=== PATIENT | male | born 1980 | race Caucasian/White ===

== ENCOUNTER 2022-12-28 14:13 | Emergency (ER) | payer BC, SELFPAY ==
[2022-12-28 14:20] VITALS: BP 138/87; PULSE 109; RESP 16; TEMP 36.8; O2SAT 94; BMI 40.8
--- NOTE | 2022-12-28 15:46 | USR_ITS ---
PROCEDURE INFORMATION: Exam: US Duplex Left Lower Extremity Veins, Limited Exam date and time: 12/28/2022 4:55 PM Age: 42 years old Clinical indication: Pain; Leg, lower; Left; Additional info: Redness/pain/swelling TECHNIQUE: Imaging protocol: Real-time duplex ultrasound of the left extremity with 2-D alejandro scale, color Doppler flow and spectral waveform analysis including responses to compression and other maneuvers (when performed) with image documentation. Limited exam focused on the left lower extremity veins. COMPARISON: No relevant prior studies available. FINDINGS: Left deep veins: Unremarkable. The common femoral, femoral, proximal profunda femoral and popliteal veins as well as the visualized deep veins of the lower leg are patent without thrombus. Normal Doppler waveforms. Normal compressibility and/or augmentation response. Left superficial veins: Unremarkable. Saphenofemoral junction is patent without thrombus. Soft tissues: Unremarkable. US/[place] [id number] IMPRESSION: No evidence of deep vein thrombosis.
--- NOTE | 2022-12-28 15:47 | W.ED.EXTPRO ---
Documented by User: [email or web address] Gomez 12/28/22 16:52 HPI - Extremity Problem General: Chief complaint: Extremity Injury, Lower Stated complaint: sent by uc/pain LT leg/LT calf warm and tender Time Seen by Provider: 12/28/22 15:18 Source: patient Mode of arrival: ambulatory Limitations: no limitations History of Present Illness: Patient is a 42-year-old male who presents to ED today with complaint of redness, warmth, pain to the left lower extremity that he began noticing this morning. He states upon arrival to the emergency department he is starting to feel nauseous and possibly febrile. Patient was afebrile in triage. He was reportedly seen at an [facility] clinic and referred to the ED for ultrasound evaluation for a DVT. He does state he recently has had a very long 12+ hour car ride. No previous history of DVT/PE. MD Complaint: extremity pain and extremity swelling Onset (ago): hour(s) Pain Consistency: constant Location: left and lower extremity Quality: burning and constant Radiation: none Relieving factors: nothing Exacerbating factors: nothing Associated symptoms: Reports fever(s) (subjective-states this just started upon arrival to ED) and other (nausea, subjective fever); Deny chest pain Context: recent travel (long car ride) Review of Systems Const: Reports: fever(s) (subjective-states this just started upon arrival to ED); Denies: chills, body aches, fatigue or malaise Card: Denies: chest pain Resp: Denies: dyspnea GI: Reports: nausea; Denies: abdominal pain, vomiting or change in bowel habits Musc: Reports: extremity pain and extremity swelling; Denies: neck pain, back pain, joint pain, joint swelling, joint redness, joint warmth or limited range of motion Skin/Breast: Reports: erythema (L LE) Neuro: Denies: numbness in extremities, weakness in extremities, sensory changes or difficulty walking [facility] ED PFSH: Social History Smoking and tobacco status: never smoked Physical Exam Const: COMMON NORMALS: no acute distress, patient oriented x3, no limitations and alert GENERAL APPEARANCE: cooperative NUTRITIONAL APPEARANCE: obese ORIENTATION/CONSCIOUSNESS: Yes awake, Yes oriented to person, Yes oriented to place and Yes oriented to time Resp: COMMON NORMALS: normal respiratory effort and clear to auscultation bilaterally AUSCULTATION: clear to auscultation bilaterally Cardio: COMMON NORMALS: regular rate and regular rhythm RATE: regular rate RHYTHM: regular rhythm Extremity: COMMON NORMALS: full ROM, capillary refill normal, no joint enlargement, no clubbing, cyanosis or edema and no pedal edema GENERAL: Yes normal exam except as noted EXTREMITY IMAGE (FRONT): 1. erythema/warmth; blanching; edema present-slightly moves into calf although calf is not notable swollen; negative Cecelia's; findings consistent with cellulitis Neuro: COMMON NORMALS: patient oriented x3, moves all extremities, no focal motor deficits and no sensory deficits noted SENSORIUM/ORIENTATION: Yes alert, Yes oriented to person, Yes oriented to place and Yes oriented to time Skin: RASHES: rashes noted (L ALTON; see above) Course Vital Signs: Vital signs: Vital Signs Temperature 98.2 F 12/28/22 14:20 Pulse Rate 109 H 12/28/22 14:20 Respiratory Rate 16 12/28/22 14:20 Blood Pressure 138/87 12/28/22 14:20 Pulse Oximetry 94 12/28/22 14:20 Oxygen Delivery Me thod Room Air 12/28/22 14:20 MDM - Extremity (Nontraumatic) Lab Data 12/28/22 16:28 12/28/22 16:28 Laboratory Results WBC 14.2 10^3/uL (4.0-10.0) H 12/28/22 16:28 RBC 4.79 10^6/uL (4.1-5.3) 12/28/22 16:28 Hgb 15.5 g/dL (11.7-16.6) 12/28/22 16:28 Hct 45.5 % (42.0-52.0) 12/28/22 16:28 MCV 95.0 fl (80-94) H 12/28/22 16:28 MCH 32.4 pg (28.0-34.0) 12/28/22 16:28 MCHC 34.1 g/dL (30.0-36.0) 12/28/22 16:28 RDW 12.8 % (12.1-15.1) 12/28/22 16:28 Plt Count 177 10^3/cmm (130-400) 12/28/22 16:28 MPV 9.2 fL (7.4-10.4) 12/28/22 16:28 Neut % (Auto) 77.2 % 12/28/22 16:28 Lymph % (Auto) 14.3 % 12/28/22 16:28 Martin % (Auto) 6.6 % 12/28/22 16:28 Eos % (Auto) 1.0 % 12/28/22 16:28 Baso % (Auto) 0.5 % 12/28/22 16:28 Neut # (Auto) 10.93 10^3/uL (1.8-7.7) H 12/28/22 16: Lymph # (Auto) 2.0 10^3/uL (0.8-4.8) 12/28/22 16:28 Martin # (Auto) 0.9 10^3/uL (0.2-0.9) 12/28/22 16: Eos # (Auto) 0.1 10^3/uL (0.0-0.8) 12/28/22 16: Baso # (Auto) 0.1 10^3/uL (0.0-0.1) 12/28/22 16: Nucleated RBC % (auto) 0 % 12/28/22 16: Nucleated RBCs # 0.0 /100WBC 12/28/22 16:28 Sodium 134 mmol/L (136-145) L 12/28/22 16:28 Potassium 3.9 mmol/L (3.5-5.1) 12/28/22 16:28 Chloride 100 mmol/L (98-107) 12/28/22 16:28 Carbon Dioxide 26 mmol/L (22-29) 12/28/22 16:28 Anion Gap 11.9 (5-19) 12/28/22 16:28 BUN 10 mg/dL (6-20) 12/28/22 16:28 Creatinine 0.8 mg/dL (0.7-1.2) 12/28/22 16:28 GFR Calculation 106.0 mL/min (90-130) 12/28/22 16:28 Glucose 96 mg/dL (65-115) 12/28/22 16:28 Calculated Osmolality 277 mOsm/kg (285-295) L 12/28/22 16:28 Calcium 8.9 mg/dL (8.5-10.5) 12/28/22 16:28 Total Bilirubin 0.9 mg/dL (0.15-1.2) 12/28/22 16:28 AST 32 U/L (0-40) 12/28/22 16:28 ALT 53 U/L (0-41) H 12/28/22 16:28 Alkaline Phosphatase 54 U/L (40-130) 12/28/22 16:28 C-Reactive Protein 3.0 mg/L (0.0-4.9) 12/28/22 16:28 Total Protein 6.5 g/dL (6.6-8.7) L 12/28/22 16:28 Albumin 3.8 g/dL (3.5-5.2) 12/28/22 16:28 Globulin 2.7 g/dL (1.3-4.6) 12/28/22 16:28 Discharge Plan Discharge Patient Disposition: Home Clinical Impression: Cellulitis of left lower leg Condition: Stable Prescriptions: No Action lisinopril 5 mg tablet 5 mg PO BID sulfamethoxazole-trimethoprim [Bactrim DS] 800-160 mg tablet 1 tab PO BID 10 Days Qty: 20 0RF Discharge Orders: Discharge ED (Routine); Ordered 12/28/22 Ordered By: Eliezer Sumner Referrals: Ramon Smith MD [Primary Care Provider] - Patient Instructions: Cellulitis (ED) Activity Restrictions/Additional Instructions: Take antibiotics as prescribed. Elevate leg is much as possible. Continue with routine medications as directed. Follow-up with primary care in 3 to 5 days for recheck. Return to ER for worsening symptoms such as increasing redness and swelling, fever greater than 100.4, or uncontrolled pain. Sign Out Sign Out Data: Patient Sign Out occurred on 12/28/22 at 17:03. Patient's care was discussed, and care was transferred from to Eliezer Sumner. Coding Level of Care Code ED Sash Clamp Operator for Chg Fwd Documented by User: CONSUELO Perry 12/28/22 17:19 HPI - Extremity Problem General: Chief complaint: Extremity Injury, Lower Stated complaint: sent by uc/pain LT leg/LT calf warm and tender Time Seen by Provider: 12/28/22 15:18 [facility] ED PFSH: Social History Smoking and tobacco status: never smoked Physical Exam Extremity: EXTREMITY IMAGE (FRONT): 1. erythema/warmth; blanching; edema present-slightly moves into calf although calf is not notable swollen; negative Cecelia's; findings consistent with cellulitis Course Vital Signs: Vital signs: Vital Signs Temperature 98.2 F 12/28/22 14:20 Pulse Rate 109 H 12/28/22 14:20 Respiratory Rate 16 12/28/22 14:20 Blood Pressure 138/87 12/28/22 14:20 Pulse Oximetry 94 12/28/22 14:20 Oxygen Delivery Me thod Room Air 12/28/22 14:20 MDM - Extremity (Nontraumatic) Medical Decision Making Patient was referred to the emergency department for concerns of swelling and redness to the left lower extremity. On exam patient has some erythema to the posterior left lower leg. Distal pulses are intact. Patient has multiple areas of scarring to bilateral lower legs. Patient reports he just gets lesions that he picks at on his lower legs at times. Patient denies diabetes mellitus. Differential diagnosis includes but not limited to cellulitis, DVT, superficial thrombophlebitis, varicose veins. Laboratory values were unremarkable. CRP was 3. Ultrasound of the extremity showed no signs of DVT. Patient will continue antibiotics as prescribed from urgent care with recommendations for follow-up or return to the ER as needed. Lab Data 12/28/22 16:28 12/28/22 16:28 Laboratory Results WBC 14.2 10^3/uL (4.0-10.0) H 12/28/22 16:28 RBC 4.79 10^6/uL (4.1-5.3) 12/28/22 16:28 Hgb 15.5 g/dL (11.7-16.6) 12/28/22 16:28 Hct 45.5 % (42.0-52.0) 12/28/22 16: MCV 95.0 fl (80-94) H 12/28/22 16: MCH 32.4 pg (28.0-34.0) 12/28/22 16: MCHC 34.1 g/dL (30.0-36.0) 12/28/22 16: RDW 12.8 % (12.1-15.1) 12/28/22 16:28 Plt Count 177 10^3/cmm (130-400) 12/28/22 16:28 MPV 9.2 fL (7.4-10.4) 12/28/22 16:28 Neut % (Auto) 77.2 % 12/28/22 16: Lymph % (Auto) 14.3 % 12/28/22 16: Martin % (Auto) 6.6 % 12/28/22 16: Eos % (Auto) 1.0 % 12/28/22 16: Baso % (Auto) 0.5 % 12/28/22 16: Neut # (Auto) 10.93 10^3/uL (1.8-7.7) H 12/28/22 16:28 Lymph # (Auto) 2.0 10^3/uL (0.8-4.8) 12/28/22 16:28 Martin # (Auto) 0.9 10^3/uL (0.2-0.9) 12/28/22 16: Eos # (Auto) 0.1 10^3/uL (0.0-0.8) 12/28/22 16: Baso # (Auto) 0.1 10^3/uL (0.0-0.1) 12/28/22 16: Nucleated RBC % (auto) 0 % 12/28/22 16: Nucleated RBCs # 0.0 /100WBC 12/28/22 16: Sodium 134 mmol/L (136-145) L 12/28/22 16:28 Potassium 3.9 mmol/L (3.5-5.1) 12/28/22 16: Chloride 100 mmol/L (98-107) 12/28/22 16: Carbon Dioxide 26 mmol/L (22-29) 12/28/22 16:28 Anion Gap 11.9 (5-19) 12/28/22 16:28 BUN 10 mg/dL (6-20) 12/28/22 16:28 Creatinine 0.8 mg/dL (0.7-1.2) 12/28/22 16:28 GFR Calculation 106.0 mL/min (90-130) 12/28/22 16:28 Glucose 96 mg/dL (65-115) 12/28/22 16:28 Calculated Osmolality 277 mOsm/kg (285-295) L 12/28/22 16:28 Calcium 8.9 mg/dL (8.5-10.5) 12/28/22 16:28 Total Bilirubin 0.9 mg/dL (0.15-1.2) 12/28/22 16:28 AST 32 U/L (0-40) 12/28/22 16:28 ALT 53 U/L (0-41) H 12/28/22 16:28 Alkaline Phosphatase 54 U/L (40-130) 12/28/22 16:28 C-Reactive Protein 3.0 mg/L (0.0-4.9) 12/28/22 16:28 Total Protein 6.5 g/dL (6.6-8.7) L 12/28/22 16:28 Albumin 3.8 g/dL (3.5-5.2) 12/28/22 16:28 Globulin 2.7 g/dL (1.3-4.6) 12/28/22 16:28 Discharge Plan Discharge Patient Disposition: Home Clinical Impression: Cellulitis of left lower leg Condition: Stable Prescriptions: No Action lisinopril 5 mg tablet 5 mg PO BID sulfamethoxazole-trimethoprim [Bactrim DS] 800-160 mg tablet 1 tab PO BID 10 Days Qty: 20 0RF Discharge Orders: Discharge ED (Routine); Ordered 12/28/22 Ordered By: Eliezer Sumner Referrals: Ramon Smith MD [Primary Care Provider] - Patient Instructions: Cellulitis (ED) Activity Restrictions/Additional Instructions: Take antibiotics as prescribed. Elevate leg is much as possible. Continue with routine medications as directed. Follow-up with primary care in 3 to 5 days for recheck. Return to ER for worsening symptoms such as increasing redness and swelling, fever greater than 100.4, or uncontrolled pain. Sign Out Sign Out Data: Patient Sign Out occurred on 12/28/22 at 17:03. Patient's care was discussed, and care was transferred from to Eliezer Sumner. Coding Level of Care Code ED Sash Clamp Operator for Radha Galarza
[2022-12-28 16:37] LABS: Basophils # 0.1 10^3/uL (0.0-0.1); Basophils % 0.5 %; Eosinophils # 0.1 10^3/uL (0.0-0.8); Hematocrit 45.5 % (42.0-52.0); Hemoglobin 15.5 g/dL (11.7-16.6); Lymphocytes % 14.3 %; Mean Corpuscular HGB Conc 34.1 g/dL (30.0-36.0); Mean Corpuscular Hemoglobin 32.4 pg (28.0-34.0); Mean Platelet Volume 9.2 fL (7.4-10.4); Monocytes # 0.9 10^3/uL (0.2-0.9); Monocytes % 6.6 %; Neutrophils # 10.93 10^3/uL (1.8-7.7); Neutrophils % 77.2 %; Nucleated Red Blood Cells % 0 %; Platelet Count 177 10^3/cmm (130-400); Red Blood Count 4.79 10^6/uL (4.1-5.3); Red Cell Distribution Width 12.8 % (12.1-15.1); White Blood Count 14.2 10^3/uL (4.0-10.0)
[2022-12-28 17:02] LABS: Alanine Aminotransferase 53 U/L (0-41); Albumin Level 3.8 g/dL (3.5-5.2); Alkaline Phosphatase 54 U/L (40-130); Anion Gap 11.9 (5-19); Aspartate Amino Transferase 32 U/L (0-40); Blood Urea Nitrogen 10 mg/dL (6-20); Calcium 8.9 mg/dL (8.5-10.5); Carbon Dioxide 26 mmol/L (22-29); Chloride 100 mmol/L (98-107); Globulin 2.7 g/dL (1.3-4.6); Glucose 96 mg/dL (65-115); Osmolality Calculated 277 mOsm/kg (285-295); Potassium 3.9 mmol/L (3.5-5.1); Sodium 134 mmol/L (136-145); Total Bilirubin 0.9 mg/dL (0.15-1.2); Total Protein 6.5 g/dL (6.6-8.7)
[2022-12-28 17:44] VITALS: BP 138/87; PULSE 109; RESP 16; TEMP 36.8; O2SAT 94
== END 2022-12-28 17:47 | disposition home or self-care (01) ==
PROVIDERS: Physician Assistant; Emergency Provider Nurse Practitioner Family; PCP Family Medicine
DX: L03.116 Cellulitis of left lower limb (principal)
CPT/HCPCS: 80053; 85025; 86140; 93971; 99284

== ENCOUNTER 2024-12-21 12:46 | Emergency (ER) | payer BC, SELFPAY ==
--- OUTSIDE RECORDS SUMMARY | 2024-12-21 12:50 | XMS_ITS | Patient Health Record ---
Author Organization [facility] Address [address] [place] [address] Care Team Providers Care Rn Dialysis Name Role Phone Jessi Live Primary Care Provider [phone] Kurt aRbago [phone] Allergies No Known Allergies Reason For Referral No Information Medications Medication SIG (Take, Route, Frequency, Duration) Notes Start Date End Date Status Lisinopril 10 MG 1/2 tablet in the AM 1 tablet at night Orally daily for 30 days Dose increase 09/30/2021 Active Social History Tobacco Use: Social History Observation Description Date Details (start date - stop date) Never Smoker NA - NA xTobacco Use/Smoking Question Answer Notes Are you a nonsmoker Alcohol Screen (Audit-C) Question Answer Notes Did you have a drink contain ing alcohol in the past year? Yes How often did you have a dri nk containing alcohol in the past year? Monthly or less (1 point) How many drinks did you have on a typical day when you were drinking in the past year? 1 or 2 drinks (0 point) How often did you have 6 or more drinks on one occasion in the past year? Less than monthly (1 point) Points 2 Interpretation Negative Tobacco use other than smoking: Question Answer Notes Are you an other tobacco user? No PHQ-9 Question Answer Notes Little interest or pleasure in doing things Not at all Feeling down, depressed, or hopeless Not at all Trouble falling or staying asleep, or sleeping t oo much Not at all Feeling tired or having little energy Not at all Poor appetite or overeating Not at all Feeling bad about yourself, or that you are a failure, or have let yourself or your family down Not at all Trouble concentrating on thi ngs, such as reading the newspaper or watching television Not at all Moving or speaking so slowly that other people could have noticed. Or the opposite ? being so fidgety or restless that you have been moving around a lot more than usual Not at all Thoughts that you would be b nhung off , or of hurting yourself in some way Not at all Total Score 0 Problems Problem Type SNOMED Code ICD Code Onset Dates Problem Status W/U Status Risk Notes Problem 49381337 Essential hypertension (I10) Active confirmed Problem 134334319 Seasonal allergies (J30.2) Active confirmed Problem Obstructive sleep apnea syndrome (18033735) Obstructive sleep apnea (adult) (pediatric) (327.23) 12/23/19 18 Active confirmed [id number] 911- Problem Chronic diastolic heart failure (158933891) Diastolic heart failure, chronic (428.32) 08/20/19 17 Active confirmed [id number] 911- Problem Erectile dysfunction (854314042) Erectile dysfunction (302.72) 08/20/19 17 Active confirmed [id number] 911- Problem Essential hypertension (02293243) Essential hypertension (401.1) 10/07/19 18 Active confirmed [id number] 911- Problem Obsessive-compuls page disorder (519867259) OCD (300.3) 11/18/19 18 Active confirmed [id number] 911- Problem Cardiomegaly (4087944) Cardiomegaly (429.3) 03/12/20 16 Problem resolved confirmed [id number] 911- Problem Headache (47236946) Headache (307.81) 03/12/20 16 Problem resolved confirmed [id number] 911- Problem Screening for cardiovascular system disease (procedure) (310793139) Screening for cardiovascular conditions (V81.2) 03/12/20 16 Problem resolved confirmed [id number] 911- Problem Disorder of hematopoietic system (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) Other abnormal findings on blood examination (790.99) 10/06/19 17 Problem resolved confirmed [id number] 911- Problem Disorder of lipid metabolism (633540098) Low HDL level (272.9) 08/20/19 17 Problem resolved confirmed [id number] 911- Plan Of Treatment No Information Insurance Providers Payer Name Payer Address Payer Phone Subscriber Number Group Number Insured Name Patient Relationship to Insured Coverage Start Date Coverage End Date [facility] [employer] [address] [place] [address] [phone] [id number] Nikhil Oliver Self - patient is the insured Medical (General) History Medical History History ICD Code Obstructive sleep apnea Essential hypertension; 12/01 manual cuff 138/92 and home cuff was 139/100. OCD Low HDL level Diastolic heart failure Erectile dysfunction Cardiomegaly Surgical History Surgery Date(Month/Year) tonsillectomy age 5
--- NOTE | 2024-12-21 12:53 | ECG_ITS ---
[facility] Test Date: 2024-12-21 Pat Name: Nikhil Oliver Department: Room: Gender: Male Chemists: : 1980 Requested By: William Romeo Order Number: [id number] Dalia MD: Salina Gutierrez M.D. Measurements Intervals [place] Rate: 98 P: 29 MT: 198 QRS: -21 QRSD: 102 T: 28 QT: 330 QTc: 423 Interpretive Statements SINUS RHYTHM WITH OCCASIONAL VENTRICULAR PREMATURE COMPLEXES BORDERLINE LEFT AXIS DEVIATION [QRS AXIS < -20] INCOMPLETE RIGHT BUNDLE BRANCH BLOCK [90+ ms QRS DURATION, TERMINAL R IN V1/V2, 40+ ms S IN I/aVL/V4/V5/V6] No previous ECG available for comparison Electronically Signed On 12-22-2024 15:21:44 CDT by Salina Gutierrez M.D. [email or web address]
[2024-12-21 12:55] VITALS: BP 137/89; PULSE 100; RESP 16; TEMP 36.6; O2SAT 98; BMI 42.5
[2024-12-21 14:30] VITALS: BP 115/93; PULSE 87; O2SAT 97
--- NOTE | 2024-12-21 14:38 | XR_ITS ---
WS: [id number] Exam: XR chest 1V portable [id number] Date/Time of Exam: 12/21/2024 2:38 PM Reason For Exam: Chest pain No priors. Lungs are fully expanded and clear. Normal cardiomediastinal silhouette. No pleural effusions. Bony structures are intact. XR/XR chest 1V portable [id number] IMPRESSION: 1. No acute cardiopulmonary finding.
[2024-12-21 14:58] LABS: Hematocrit 49.4 % (37-53); Hemoglobin 17.40 g/dL (11.27-16.99); Mean Corpuscular HGB Conc 35.2 g/dL (30-55); Mean Corpuscular Hemoglobin 32.5 pg (27-33); Mean Corpuscular Volume 92.2 fl (82-101); Nucleated Red Blood Cells % 0 %; Platelet Count 235 10^3/cmm (157-399); Red Blood Count 5.36 10^6/uL (3.85-5.65); White Blood Count 9.26 10^3/uL (3.29-11.43)
[2024-12-21 15:00] VITALS: BP 145/100; PULSE 80; O2SAT 95
--- NOTE | 2024-12-21 15:01 | W.ED.CHESTPA ---
HPI - Chest Pain General: Chief Complaint: Chest Pain Stated Complaint: chest pains at times Time Seen by Provider: 12/21/24 14:33 History of Present Illness: 44-year-old man with history of obesity and hypertension and a strong cardiac history who presents the emergency room with several brief episodes of chest pain today. He said it lasted only a couple of seconds. He says as soon as it happened and he started to notice he is having pain it would go away. 7 the left chest and some of the right chest. He had an episode while out in the waiting room. Multiple family members have of heart attack so he is quite worried about that. Related Data Home Medications ?Medication ?Instructions ?Recorded ?Confirmed lisinopril 5 mg tablet 5 mg PO BID 12/11/21 12/28/22 Previous Rx's ?Medication ?Instructions ?Recorded sulfamethoxazole 800 1 tab PO BID 10 days #20 tabs 12/28/22 mg-trimethoprim 160 mg tablet (Bactrim DS) Allergies Allergy/AdvReac Type Severity Reaction Status Date / Time No Known Allergies Allergy Verified 12/28/22 14:20 [facility] ED PFSH: Social History Smoking and tobacco/nicotine status: never used tobacco/nicotine Physical Exam Narrative: EXAM NARRATIVE: General: Alert, no acute distress. Skin: Warm, dry. Head: Normocephalic, atraumatic. Neck: Supple, trachea midline. Eye: Extraocular movements are intact. Ears, nose, mouth and throat: mucosa moist. Cardiovascular: Regular, Normal peripheral perfusion. Respiratory: Lungs are clear to auscultation, respirations are non-labored, breath sounds are equal, Symmetrical chest wall expansion. Gastrointestinal: Soft, Nontender, Non distended Musculoskeletal: Normal ROM, no deformity. Neurological: Alert and oriented, No focal neurological deficit observed. Psychiatric: Cooperative, appropriate mood & affect. Course Vital Signs: Vital signs: Vital Signs Temperature 98 F 12/21/24 12:55 Pulse Rate 92 12/21/24 15:30 Respiratory Rate 16 12/21/24 12:55 Blood Pressure 131/97 12/21/24 15:30 Pulse Oximetry 96 12/21/24 15:30 Oxygen Delivery Me thod Room Air 12/21/24 15:30 MDM - Chest Pain Medical Decision Making Differential diagnosis for patient with chest pain includes but is not limited to and based on the above HPI, review of systems and physical exam: Pneumonia. unstable angina. angina. Acute coronary syndrome / DC. Pulmonary embolism. Costochondritis / musculoskeletal. Pleurisy. Pericarditis. Esophageal spasm. Pancreatis. Cholecystitis. Orders placed to evaluate differential diagnosis based on the above differential, HPI and physical exam EKG: Time 1253. Rate 96. Normal sinus rhythm, No ST-T changes, PVCs, incomplete right bundle branch block, This was reviewed and interpreted by myself the ER physician at 1258 Chest x-ray: No acute process. No infiltrate. No pneumothorax. This was reviewed and interpreted by myself the emergency room physician. I also reviewed the radiology report. Lab Review: Laboratory results were reviewed and interpreted by myself the emergency room physician. No leukocytosis. No anemia. No renal failure. Serial troponins are negative. Repeat EKG: Time 1620. Rate 92. Normal sinus rhythm, No ST-T changes, PVCs, incomplete right bundle branch block, This was reviewed and interpreted by myself the ER physician at 1625. No changes from EKG done previously today in the emergency room. I reviewed the patient's medical record. Reexamination: Patient remained stable. No increased work of breathing. No altered mental status. No focal motor deficits. Patient has remained chest pain-free w Assessment and plan: Noncardiac chest pain - Discharged home - Discussed plan with patient. Answered any questions. - Evaluation and treatment of this problem were appropriate in the emergency setting. Lab Data 12/21/24 14:45 12/21/24 14:45 Radiology Impressions Chest X-Ray 12/21/24 14:38 IMPRESSION: 1. No acute cardiopulmonary finding. Laboratory Results WBC 9.26 10^3/uL (3.29-11.43) 12/21/24 14:45 RBC 5.36 10^6/uL (3.85-5.65) 12/21/24 14:45 Hgb 17.40 g/dL (11.27-16.99) H 12/21/24 14:45 Hct 49.4 % (37-53) 12/21/24 14:45 MCV 92.2 fl (82-101) 12/21/24 14:45 MCH 32.5 pg (27-33) 12/21/24 14:45 MCHC 35.2 g/dL (30-55) 12/21/24 14:45 RDW 12.8 % (12.1-15.1) 12/21/24 14:45 Plt Count 235 10^3/cmm (157-399) 12/21/24 14:45 MPV 9.3 fL (7.4-10.4) 12/21/24 14:45 Neut % (Auto) 60.7 % 12/21/24 14:45 Lymph % (Auto) 28.1 % 12/21/24 14:45 Mora % (Auto) 7.3 % 12/21/24 14:45 Eos % (Auto) 2.7 % 12/21/24 14:45 Baso % (Auto) 0.9 % 12/21/24 14:45 Neut # (Auto) 5.62 10^3/uL (1.8-7.7) 12/21/24 14:45 Lymph # (Auto) 2.6 10^3/uL (0.8-4.8) 12/21/24 14:45 Mora # (Auto) 0.7 10^3/uL (0.2-0.9) 12/21/24 14:45 Eos # (Auto) 0.3 10^3/uL (0.0-0.8) 12/21/24 14:45 Baso # (Auto) 0.1 10^3/uL (0.0-0.1) 12/21/24 14:45 Nucleated RBC % (auto) 0 % 12/21/24 14:45 Nucleated RBCs # 0.0 /100WBC 12/21/24 14:45 Sodium 139 mmol/L (136-145) 12/21/24 14:45 Potassium 3.6 mmol/L (3.5-5.1) 12/21/24 14:45 Chloride 99 mmol/L (98-107) 12/21/24 14:45 Carbon Dioxide 27 mmol/L (22-29) 12/21/24 14:45 Anion Gap 16.6 (5-19) 12/21/24 14:45 BUN 12 mg/dL (6-20) 12/21/24 14:45 Creatinine 0.7 mg/dL (0.7-1.2) 12/21/24 14:45 GFR Calculation 122.5 mL/min (90-130) 12/21/24 14:45 Glucose 96 mg/dL (65-115) 12/21/24 14:45 Calculated Osmolality 288 mOsm/kg (285-295) 12/21/24 14:45 Calcium 9.7 mg/dL (8.5-10.5) 12/21/24 14:45 Total Bilirubin 0.9 mg/dL (0.15-1.2) 12/21/24 14:45 AST 43 U/L (0-40) H 12/21/24 14:45 ALT 54 U/L (0-41) H 12/21/24 14:45 Alkaline Phosphatase 59 U/L (40-130) 12/21/24 14:45 Troponin T Baseline 13 ng/L (0-15) 12/21/24 14:45 Troponin T 120 Minute 11.13 ng/L (0-15) 12/21/24 15:50 Delta Troponin T -1.87 ABS# (0-10) L 12/21/24 15:50 Total Protein 7.2 g/dL (6.6-8.7) 12/21/24 14:45 Albumin 4.4 g/dL (3.5-5.2) 12/21/24 14:45 Globulin 2.8 g/dL (1.3-4.6) 12/21/24 14:45 All radiology interpretation(s) finalized by discharge Discharge Plan Discharge Patient Disposition: Home Clinical Impression: Non-cardiac chest pain Condition: Stable Prescriptions: No Action lisinopril 5 mg tablet 5 mg PO BID sulfamethoxazole-trimethoprim [Bactrim DS] 800-160 mg tablet 1 tab PO BID 10 Days Qty: 20 0RF Discharge Orders: Discharge ED (Routine); Ordered 12/21/24 Ordered By: Deidra Fuentes Referrals: Ramon Smith MD [Primary Care Provider, Family Practice] Discharge Diet: Usual diet Discharge Activity: Increase activity as tolerated Patient Instructions: Noncardiac Chest Pain (ED), Opioid Safety, Pain Management, Patient Portal & Yajaira Instructions Activity Restrictions/Additional Instructions: Thank you for choosing [facility] for your healthcare needs today. You have been screened and evaluated and felt safe for discharge. Health conditions do change or evolve sometimes and as such it is important that you follow up with your Primary Doctor to be re checked, 3-5 days is a general good time frame for follow up. You are always welcome to return to the ED for re assessment if your symptoms are worsening or you have new concerns Print Language: Welsh Coding Level of Care Code ED Turn Down Worker for Radha Galarza
[2024-12-21 15:15] LABS: Troponin(5th) Baseline 13 ng/L (0-15)
[2024-12-21 15:17] LABS: Alanine Aminotransferase 54 U/L (0-41); Albumin Level 4.4 g/dL (3.5-5.2); Alkaline Phosphatase 59 U/L (40-130); Anion Gap 16.6 (5-19); Aspartate Amino Transferase 43 U/L (0-40); Blood Urea Nitrogen 12 mg/dL (6-20); Calcium 9.7 mg/dL (8.5-10.5); Carbon Dioxide 27 mmol/L (22-29); Chloride 99 mmol/L (98-107); Creatinine Clr Calc Pharmacy 214.0731; Globulin 2.8 g/dL (1.3-4.6); Glucose 96 mg/dL (65-115); Osmolality Calculated 288 mOsm/kg (285-295); Potassium 3.6 mmol/L (3.5-5.1); Sodium 139 mmol/L (136-145); Total Protein 7.2 g/dL (6.6-8.7)
[2024-12-21 15:30] VITALS: BP 131/97; PULSE 92; O2SAT 96
--- NOTE | 2024-12-21 16:20 | ECG_ITS ---
[facility]21 Pat Name: Nikhil Oliver Department: Room: Gender: Male Substance Abuse Technician: : 1980 Requested By: Deidra Romeo Order Number: [id number] Dalia MD: Salina Gutierrez M.D. Measurements Intervals Rescue Rate: 92 P: 29 PA: 195 QRS: -17 QRSD: 102 T: 14 QT: 338 QTc: 418 Interpretive Statements SINUS RHYTHM WITH OCCASIONAL VENTRICULAR PREMATURE COMPLEXES INCOMPLETE RIGHT BUNDLE BRANCH BLOCK [90+ ms QRS DURATION, TERMINAL R IN V1/V2, 40+ ms S IN I/aVL/V4/V5/V6] Compared to ECG 12/21/2024 12:53:58 No significant changes Electronically Signed On 12-22-2024 15:33:00 CDT by Salina Gutierrez M.D. [email or web address]
[2024-12-21 16:24] LABS: Troponin 5 2HR 11.13 ng/L (0-15)
[2024-12-21 16:29] LABS: Troponin 5 2HR Delta -1.87 ABS# (0-10)
[2024-12-21 16:56] VITALS: BP 114/74; PULSE 85; O2SAT 94
== END 2024-12-21 16:59 | disposition home or self-care (01) ==
PROVIDERS: Emergency Provider Emergency Medicine; PCP Family Medicine
DX: R07.89 Other chest pain (principal); I10 Essential (primary) hypertension
CPT/HCPCS: 36415; 71045; 80053; 84484; 85025; 93005; 99285

== ENCOUNTER 2025-02-16 06:31 | Outpatient (CLI) | payer BC, SELFPAY ==
--- NOTE | 2025-02-16 06:30 | USCV_ITS ---
Nikhil Oliver Age: 45 Gender: M : 1980 Exam Date: 02/16/2025 06:42 Ordering Phys: Shamir Pang MD ([email or web address]) Technologist: GLORIA Exam Location: [facility] [place] Indication: CP BP: 120 / 90 HR: 81 Rhythm: Sinus Technical Quality: Adequate MEASUREMENTS (Male / Female) Normal Values 2D ECHO LV Diastolic Diameter PLAX 5.5 cm 4.2 - 5.9 / 3.9 - 5.3 cm IVS Diastolic Thickness 1.1 cm 0.6 - 1.0 / 0.6 - 0.9 cm IVS Systolic Thickness 1.4 cm LVPW Systolic Thickness 2.4 cm LVOT Diameter 2.0 cm LV Ejection Fraction 2D Teich 54.9 % LV Ejection Fraction MOD 4C 58.3 % LV Ejection Fraction MOD 2C 55.3 % LV Ejection Fraction 2C AL 56.5 % LA Diameter 3.5 cm RA Systolic Volume 4C AL 72.3 ml RA Systolic Volume 4C MOD 69.8 ml LA Sys Volume AL 46.8 cm cubed LA Sys Volume Index AL 15.8 cm cubed/m squared Aorta at Sinotubular Diameter 3.5 cm M-MODE LA Ao Ratio MM 1.2 AV Cusp Separation MM 1.8 cm DOPPLER AV Peak Velocity 126.0 cm/s LVOT Peak Velocity 89.0 cm/s AV Area Cont Eq vti 1.9 cm squared AV Area Cont Eq pk 2.3 cm squared MV Peak Velocity 89.0 cm/s MV Area PHT 5.0 cm squared Mitral E to A Ratio 0.7 TR Peak Velocity 91.0 cm/s TR Peak Gradient 3.3 mmHg TV Peak E Velocity 82.0 cm/s PV Peak Velocity 107.0 cm/s FINDINGS Left Ventricle Normal left ventricular size, systolic function and wall thickness, with no regional wall motion abnormalities. Left ventricular ejection fraction is 58%. Right Ventricle Mildly increased right ventricular size. Normal right ventricular systolic function. RVSP could not be calculated due to incomplete tricuspid regurgitation velocity profile. Right Atrium Normal right atrial size. Left Atrium Normal left atrial size. Mitral Valve No mitral valve stenosis. No mitral valve regurgitation. Aortic Valve No aortic valve stenosis. Trace aortic valve regurgitation. Tricuspid Valve No tricuspid valve regurgitation. No tricuspid valve stenosis. Pulmonic Valve No pulmonary valve stenosis. No pulmonary valve regurgitation. Pericardium No pericardial effusion. Aorta Normal size aortic root and proximal ascending aorta. IVC Inferior vena cava not visualized. CONCLUSIONS 1. Normal left ventricular size and systolic funcion, EF 58%. 2. Mildly dilated right ventricle. Normal right ventricular function. 3. No significant valvular abnormalities. Shamir Pang MD, FACC (Electronically Signed) Final Date: 20 February 2025 12:49 S
== END 2025-02-16 06:32 | disposition home or self-care (01) ==
LOC: RAD 06:32
PROVIDERS: PCP Family Medicine; Visit Provider Internal Medicine Cardiovascular Disease
DX: R07.9 Chest pain, unspecified (principal); I51.7 Cardiomegaly
CPT/HCPCS: 93306

== ENCOUNTER 2025-03-14 11:49 | Outpatient (CLI) | payer BC, SELFPAY ==
--- NOTE | 2025-03-14 | ECG_ITS ---
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 Interpretive Statements Lung unchanged pre/post procedure; Intraprocedure shortess of breath; Symptoms resoled by discharge PROCEDURE: At the baseline, the patient's blood pressure was with a heart rate of. The baseline electrocardiogram showed normal sinus rhythm with normal ST-Ts. Nonspecific IVCD. Frequent PVCs were noted. The patient exercised for 6 minutes and 30 on a standard [place] protocol. Patient attained a maximum heart rate of 149 beats per minute(85% of the maximum predicted heart rate) with a blood pressure at the peak exercise of 162/69 mm Hg. The EKG at the peak exercise revealed no significant change. Patient did not have any chest pain or any significant cardiac arrhythmias with the exercise During the recovery phase, there were no new changes. Blood pressure at the end of the recovery phase was 150/96 mm Hg with a heart rate of 113 per minute. CONCLUSION: 1. Normal EKG response to treadmill exercise 2. No exercise-induced chest pain or cardiac arrhythmia 3. Fair exercise tolerance, attained a maximum of 10.2 METs Electronically Signed On 03-18-2025 21:17:27 CDT by Salina Gutierrez M.D. [email or web address]
[2025-03-14 11:55] VITALS: BMI 43.3
--- NOTE | 2025-03-14 12:11 | USCV_ITS ---
Stress Echo Nikhil Oliver Age: 45 Gender: M : 1980 Exam Date: 03/14/2025 12:25 Ordering Phys: Shamir Pang MD ([email or web address]) Technologist: [place] [facility] [place]: Chest Pain Rhythm: Sinus Patient History: Chest pain, Hypertension Cardiac Medications: Beta placido Medications in past 24 hours: NONE Contrast: Stress Results Protocol: [place] Total dose(mL): Exercise Duration (min:sec): 06:32 METS: 10.1 Resting HR: 105 Resting BP: 124 / 84 Peak HR: 175 Peak BP: 162 / 101 Max Predicted HR: 175 100 % Max Predicted HR Target HR: 149 Double Product: 89061 Stress Summary: The patient's target heart rate was achieved BP Response: Normal Reason for Termination: Test terminated after reaching target heart rate (85% max predicted), Maximal effort/unable to continue Cardiac Symptoms: Short of Breath ECG Analysis Resting ECG: Please see separate report Stress ECG: Please see separate report Arrhythmia: Please see separate report MEASUREMENTS (Male/Female) Normal Values FINDINGS The baseline echocardiogram revealed normal LV size and ejection fraction. No segmental wall motion normalities. The aortic valve was found no gross abnormalities. Aortic root was of normal size. No gross abnormalities of the mitral valve. No pericardial effusion. With the peak exercise, there was good augmentation of all the segments with no exercise-induced wall motion abnormalities During the recovery phase, there was no new changes Technical quality is suboptimal CONCLUSIONS Normal echocardiographic response to exercise Low probability for coronary ischemia, based on the above findings Dr Salina Gutierrez MD [facility] (Electronically Signed) Final Date: 15 March 2025 09:23 S
[2025-03-14 13:18] VITALS: BP 150/96; PULSE 66
== END 2025-03-14 11:50 | disposition home or self-care (01) ==
PROVIDERS: PCP Family Medicine; Visit Provider Internal Medicine Cardiovascular Disease
DX: R07.9 Chest pain, unspecified (principal)
CPT/HCPCS: 93017; 93350